=== PATIENT | female | born 1950 | race Caucasian/White ===

== ENCOUNTER → 2018-04-27 | Outpatient (CLI) | payer MEDICARE ==
--- NOTE | 2018-04-30 15:30 | MAM ---
EXAM DESCRIPTION: 3D Screening BILATERAL : Digital Mammography. CLINICAL HISTORY: 67 years Female SCREENING . No complaints. No personal or family history of breast cancer. Childbirth. Postmenopausal 28 years. HRT 5 or more years ago.. Lifetime risk of developing breast cancer (Tyrer-Cuzick model)(%): 4.6. COMPARISON: Baseline study at this facility.. No prior reports available. TECHNIQUE: Bilateral CC and MLO projection full-field images, digital tomosynthesis mammographic technique Bilateral digital 2-D full-field MLO images. CAD not available for tomosynthesis or 2-D images. FINDINGS: The breast parenchymal density pattern is: Scattered areas of fibroglandular density. No skin thickening or nipple retraction. Focal asymmetry at the 12:00 position of the middle third of the right breast approximately 6 cm from the nipple. Not associated with microcalcifications. Scattered bilateral solitary microcalcifications. Focal asymmetry in the upper outer quadrant of the posterior third of the left breast at the 2:00 position, approximately 9 cm from the nipple. Not associated with microcalcifications. IMPRESSION: BI-RADS CATEGORY: 0 - INCOMPLETE- Need additional imaging evaluation. FOLLOW-UP: Recall for additional imaging: Bilateral orthogonal full-field breast tomosynthesis. Bilateral targeted breast ultrasound based upon diagnostic images.. Written communication concerning the IMPRESSION and Follow-up, will be mailed to the patient and referring health care provider. Electronically signed by: Kingslye Mosqueda MD 04/30/2018 3:28 PM [facility]
== END ==
LOC: MAMMO 13:00
PROVIDERS: ATTEND General Practice
DX: Z12.31 Encounter for screening mammogram for malignant neoplasm of breast (principal)

== ENCOUNTER → 2018-05-09 | Outpatient (CLI) | payer MEDICARE ==
--- NOTE | 2018-05-09 19:29 | US ---
EXAM DESCRIPTION: Breast,Bilateral: Ultrasound CLINICAL HISTORY: 67 yearsFemaleABNORMAL MAMMO COMPARISON: Digital screening tomosynthesis bilateral breast 04/27/2018. TECHNIQUE: Transcutaneous scanning of the bilateral breast utilizing millan-scale and Doppler modes. Scanning performed by the coal passer with Dr. Mosqueda observing. FINDINGS: Scanning of the right breast upper outer quadrant. Fatty echotexture heterogeneous with fibroglandular tissues. Emphasis on the 11:00 and 12:00 sectors from the nipple to 5 cm from the nipple. Small cyst less than 5 mm diameter. No dominant solid mass. No abnormal calcifications or parenchymal edema. No overlying skin changes. Normal vascularity. Scanning of the upper outer quadrant of the left breast. Emphasis at the 1:00 and 2:00 positions. Heterogeneous mixture of fibroglandular and fatty tissues. No dominant solid mass or distinct cyst. No parenchymal edema or large calcifications. No overlying skin changes. Normal vascularity. IMPRESSION: Benign exam. BIRAD CATEGORY: 2 BENIGN FINDINGS. RECOMMENDATIONS: FOLLOW UP: Return to routine digital bilateral mammographic screening, one year interval from March 2018. The FINDINGS and the FOLLOW-UP plan were reviewed in person with the patient after the examination. Written communication explaining the IMPRESSION and FOLLOW-UP will be mailed to the patient and referring care provider. According to the [employer], yearly mammograms are recommended starting at age 40 and continuing as long as a woman is in good health. Any breast change noted on a breast self-exam should be reported promptly to the patient's healthcare provider. Breast MRI is recommended for women with an approximately 20-25% or greater lifetime risk of breast cancer, including women with a strong family history of breast or ovarian cancer and women who have been treated for Hodgkin's disease. A negative mammographic report should not delay tissue diagnosis in patients with significant clinical history or physical findings. Extremely dense breast tissue limits the sensitivity of digital mammography. Electronically signed by: Kingsley Mosqueda MD 05/09/2018 7:28 PM [employer]
--- NOTE | 2018-05-10 09:29 | MAM ---
EXAM DESCRIPTION: 3D Diagnostic, Bilateral: Digital Mammography CLINICAL HISTORY: 67 [id number] bilateral focal asymmetry on screening examination. COMPARISON: Bilateral screening digital breast tomosynthesis 04/27/2018.. TECHNIQUE: Bilateral LM projection full-field images, digital mammographic tomosynthesis technique. CAD not available. FINDINGS: The breast parenchymal density pattern is: Scattered areas of fibroglandular density. No skin thickening or nipple retraction bilateral vascular calcifications and bilateral solitary microcalcifications. Again noted are focal asymmetries in the upper outer quadrant of the middle third of the left breast in the upper middle third of the right breast. The region of interest in the left breast is not well-defined. Ultrasound: Scanning of the right breast upper outer quadrant. Fatty echotexture heterogeneous with fibroglandular tissues. Emphasis on the 11:00 and 12:00 sectors from the nipple to 5 cm from the nipple. Small cyst less than 5 mm diameter. No dominant solid mass. No abnormal calcifications or parenchymal edema. No overlying skin changes. Normal vascularity. Scanning of the upper outer quadrant of the left breast. Emphasis at the 1:00 and 2:00 positions. Heterogeneous mixture of fibroglandular and fatty tissues. No dominant solid mass or distinct cyst. No parenchymal edema or large calcifications. No overlying skin changes. Normal vascularity. IMPRESSION: Benign exam. BIRAD CATEGORY: 2 BENIGN FINDINGS. RECOMMENDATIONS: FOLLOW UP: Return to routine digital bilateral mammographic screening, one year interval from March 2018. The FINDINGS and the FOLLOW-UP plan were reviewed in person with the patient after the examination. Written communication explaining the IMPRESSION and FOLLOW-UP will be mailed to the patient and referring care provider. According to the [employer], yearly mammograms are recommended starting at age 40 and continuing as long as a woman is in good health. Any breast change noted on a breast self-exam should be reported promptly to the patient's healthcare provider. Breast MRI is recommended for women with an approximately 20-25% or greater lifetime risk of breast cancer, including women with a strong family history of breast or ovarian cancer and women who have been treated for Hodgkin's disease. A negative mammographic report should not delay tissue diagnosis in patients with significant clinical history or physical findings. Extremely dense breast tissue limits the sensitivity of digital mammography. Electronically signed by: Kingsley Mosqueda MD 05/10/2018 9:27 AM [facility]
== END ==
LOC: MAMMO 12:36
PROVIDERS: ATTEND General Practice
DX: R92.8 Other abnormal and inconclusive findings on diagnostic imaging of breast (principal)
CPT/HCPCS: 76641; 77066; G0279

== ENCOUNTER → 2018-09-24 | Outpatient (CLI) | payer MEDICARE ==
--- NOTE | 2018-09-24 15:53 | CT ---
EXAM: Chest w/o Contrast CLINICAL HISTORY: MULTIPLE LUNG NODULES COMPARISON STUDY: None. TECHNICAL: Pre and post contrast CT images were performed through the chest. No prior study for comparison. FINDINGS: Soft tissue or mediastinal windows demonstrate no mass or lymphadenopathy. The heart is not enlarged. Coronary artery calcifications are present. There is calcification at the aortic valve. The aorta is non-dilated. There is no sign of an aortic dissection. The pulmonary arterial system as imaged is negative. The limited images of the upper abdomen are negative. Pulmonary parenchymal windows show a 4 mm circumscribed nodule in the medial aspect of the left lower lobe, image #95. There is a 7 x 5 mm circumscribed nodule in the lateral aspect of the right lower lobe on image #80. There is a 7 x 4 mm nodule in the superior lateral aspect of the left upper lobe that measures 7 x 4 mm. The upper lobes show a moderate emphysematous process. There is no focal consolidation. There is no pneumothorax or pleural effusion. IMPRESSION: 1. Multiple bilateral pulmonary nodules as discussed. There is no previous examination in the system for comparison. If prior studies are made available, an addendum could be placed. 2017 Fleischner Society Recommendations for Multiple Solid Lung Nodules Follow-Up base on size (average of long- and short-axis diameters). Use most suspicious nodule for followup. Nodule Size <6 mm Low-Risk Patient: No routine follow-up Nodule Size <6 mm High-Risk Patient: Optional CT at 12 months Nodule Size 6-8 mm Low-Risk Patient: CT at 3-[address] at 18-24 months Nodule Size 6-8 mm High-Risk Patient: CT at 3-6 months then at 18-24 months. 2. Moderate emphysematous changes of the upper lobes. 3. Coronary artery calcifications. This exam was performed according to our departmental dose-optimization program, which includes automated exposure control, adjustment of the mA and/or kV according to patient size and/or use of iterative reconstruction technique. Electronically signed by: Judd Connor MD 09/24/2018 3:51 PM CDT
== END ==
LOC: CT 10:12
PROVIDERS: ATTEND Internal Medicine
DX: J98.4 Other disorders of lung (principal)

== ENCOUNTER → 2019-05-01 | Outpatient (CLI) | payer MEDICARE ==
--- NOTE | 2019-05-01 16:25 | CT ---
EXAM DESCRIPTION: Chest w/o Contrast CLINICAL HISTORY: COPD COMPARISON: September 24, 2018 TECHNIQUE: Chest CT was performed without IV contrast. This exam was performed according to our departmental dose-optimization program, which includes automated exposure control, adjustment of the mA and/or kV according to patient size and/or use of iterative reconstruction technique. FINDINGS: The thyroid and thoracic inlet are unremarkable. No thoracic aortic aneurysm. Coronary artery calcification. No pleural or pericardial effusion. No hiatal hernia. Limited sensitivity for detection of adenopathy due to lack of IV contrast, but no mediastinal or hilar adenopathy is seen. The central airways are clear. Emphysema. There is a small focus of abnormal density in the right lower lobe (series 4 image 63) measuring approximately 2 cm diameter which is new from the prior exam. No additional airspace consolidation. No lung mass. Scarring in the lung apices, stable.. 7 mm noncalcified right lower lobe nodule, unchanged from August,. Tiny calcified granuloma medially in the left lower lobe. 6 mm noncalcified left upper lobe nodule, also stable. No new lung nodule. The gallbladder is surgically absent. Visualized portions of the upper abdomen are otherwise unremarkable for noncontrast technique. No axillary adenopathy. No fracture or pneumothorax. IMPRESSION: Emphysema with a 7 mm noncalcified right lower lobe nodule and a 6 mm noncalcified left upper lobe nodule, both stable from August,. No new lung nodule. Follow-up CT in 12-18 months is recommended to document continued stability. Small irregular focus of increased density in the right lower lobe which is new from August,. This may represent atelectasis, developing pneumonia or pneumonitis are not excluded. Bronchoalveolar carcinoma is a less likely consideration but is also not completely excluded. Short-term follow-up chest CT in 4-6 months is recommended to document stability or resolution of this finding. Coronary artery disease. Electronically signed by: Tom Sandoval MD 05/01/2019 4:23 PM SEED CLEANING MACHINE OPERATOR
--- NOTE | 2019-05-01 16:42 | RAD ---
EXAM DESCRIPTION: Wrist,Right 3 Views CLINICAL HISTORY: 68 years, Female, LOCALIZED SWELLING, MASS AND LUMP RIGHT COMPARISON: None TECHNIQUE: AP/ lateral/ oblique views of the right wrist. FINDINGS: Right wrist study shows no fracture or dislocation. Carpal relationships are well-maintained. No significant arthritic changes are observed. IMPRESSION: 1. Normal study Electronically signed by: Francisco Pelayo MD 05/01/2019 4:41 PM [facility]
== END ==
LOC: CT 10:54
PROVIDERS: ATTEND Orthopaedic Surgery
DX: J44.9 Chronic obstructive pulmonary disease, unspecified (principal); I25.10 Atherosclerotic heart disease of native coronary artery without angina pectoris; R22.9 Localized swelling, mass and lump, unspecified; R91.8 Other nonspecific abnormal finding of lung field

== ENCOUNTER → 2019-10-29 | Outpatient (CLI) | payer MEDICARE | LOC: LAB.O 15:04 | PROVIDERS: ATTEND Orthopaedic Surgery | DX: Z01.818 Encounter for other preprocedural examination (principal) ==

== ENCOUNTER 2019-11-13 05:14 | Day surgery (SDC) | payer MEDICARE ==
[2019-11-13] MEDS ORDERED: SODIUM CHL 0.9% 100ML MINI-BAG 100 ML IVPB ONE (06:03)
[2019-11-13] MEDS ORDERED: LACTATED RINGERS 1,000 ML ONE (06:03)
[2019-11-13] MEDS ORDERED: ceFAZolin SODIUM 1 GM VIAL ONE (06:03)
[2019-11-13] MEDS ORDERED: LIDOCAINE 1% 10 ML VIAL INJ ONE ×2 (06:30→07:00)
[2019-11-13] MEDS ORDERED: BUPIVACAINE 0.25% INJ 30 ML VIAL INJ ONE (06:31)
[2019-11-13] MEDS ORDERED: MIDAZOLAM INJ 2 MG/2 ML VIAL ONE (06:32)
[2019-11-13] MEDS ORDERED: fentaNYL CITRATE INJ 50 MCG/ML 2 ML AMP ONE (06:33)
[2019-11-13] MEDS ORDERED: PROPOFOL 200 MG/20 ML VIAL IV ONE (07:00)
[2019-11-13] MEDS: ceFAZolin SODIUM 1 GM VIAL ONE ×2 (07:23→07:32)
[2019-11-13] MEDS: VANCOMYCIN HCL INJ 1,000 MG VIAL IVPB ONE ×2 (07:24→07:32)
[2019-11-13 08:35] VITALS: BP 144/70; TEMP 96.4; O2SAT 93
--- NOTE | 2019-11-20 09:26 | OP ---
DATE OF PROCEDURE: 11/13/19 PREOPERATIVE DIAGNOSIS: 1. Benign mass, right wrist. POSTOPERATIVE DIAGNOSIS: 1. Lipoma, right wrist. PROCEDURE: 1. Excision of benign cyst. SURGEON: Abdullahi Reynaga MD. POLISHING MACHINE OPERATOR HELPER: Kingsley Moulton CST, SA-C. ANESTHESIA: Local with sedation. COMPLICATIONS: None. FINDINGS: About a 2 cm benign appearing mass compressing the superficial radial nerve. INDICATION: Ms. Arana has a history of a mass that has been very sensitive on the radial aspect of her right wrist. She has had no trauma related to that. We discussed risks, benefits and alternatives to operative therapy for this and she gave informed consent for excision. PROCEDURE: The patient was brought to the Operating Room and placed in the supine position. Anesthesia was administered and local anesthetic was injected into the operative area. Following that, an incision was made directly overlying the mass. Blunt dissection was carried down to the mass and the superficial radial nerve was dissected away from the mass. The mass was easily cored out and there was no diseased appearing tissue remaining. Following that, the wound was very thoroughly irrigated. Following that, the wound was closed with a combination of interrupted and running subcuticular stitches. Sterile dressings were placed. The patient was awaken from anesthesia and taken to Recovery. POSTOPERATIVE PLAN: She will followup with us in approximately two days. She has been encouraged to do range of motion of the digits. #[id number] [facility]
== END 2019-11-13 08:30 | disposition home or self-care (01) ==
LOC: AMB 05:14
PROVIDERS: ATTEND Orthopaedic Surgery
DX: D17.21 Benign lipomatous neoplasm of skin and subcutaneous tissue of right arm (principal); I10 Essential (primary) hypertension; E11.9 Type 2 diabetes mellitus without complications; K21.9 Gastro-esophageal reflux disease without esophagitis; E66.9 Obesity, unspecified; G40.909 Epilepsy, unspecified, not intractable, without status epilepticus; E07.9 Disorder of thyroid, unspecified; Z79.899 Other long term (current) drug therapy; Z88.0 Allergy status to penicillin; Z88.2 Allergy status to sulfonamides; Z91.048 Other nonmedicinal substance allergy status; Z79.84 Long term (current) use of oral hypoglycemic drugs
CPT/HCPCS: 00400; 25075; 36416; 80307; 82948; 88304; J0690; J2250; J3010; J3370; J3490; J7050; J7120

== ENCOUNTER → 2020-06-24 | Outpatient (CLI) | payer MEDICARE ==
--- NOTE | 2020-06-25 10:11 | CT ---
EXAM DESCRIPTION: Abdoment/Pelvis w/o Contrast CLINICAL HISTORY: 70 years Female, uti TECHNIQUE: This exam was performed according to our departmental dose-optimization program, which includes automated exposure control, adjustment of the mA and/or kV according to patient size and/or use of iterative reconstruction technique. COMPARISON: 05/01/2019 FINDINGS: Stable solid and calcified right basilar pulmonary nodule, recommendations are unchanged from the previous examination. Evaluation limited by lack of intravenous contrast. Cholecystectomy . The contours of the liver, spleen, pancreas and adrenal glands are unremarkable. Bilateral renal vascular calcifications. 3 mm nonobstructing left renal stone. No hydronephrosis. No obstructing urolithiasis. Unremarkable bladder. Hysterectomy. No suspicious adnexal lesion. No evidence of bowel obstruction or focal inflammatory change. No findings to suggest appendicitis. Normal appendix. No adenopathy. No focal fluid collection. No free air. Normal caliber abdominal aorta. Scattered atherosclerotic disease. Interval, but likely chronic L1 superior endplate compression fracture with approximately 25% height loss. No suspicious osseous abnormality. IMPRESSION: 1. 3 mm nonobstructing right renal stone. No hydronephrosis or obstructing ureteral stone. 2. Interval, but likely chronic L1 superior endplate compression fracture with approximately 25% height loss. Electronically signed by: Jean Paul Amaya MD 06/25/2020 10:10 AM [facility]
== END ==
LOC: CT 13:59
PROVIDERS: ATTEND Urology
DX: N39.0 Urinary tract infection, site not specified (principal); N20.0 Calculus of kidney; M48.56XA Collapsed vertebra, not elsewhere classified, lumbar region, initial encounter for fracture